=== PATIENT | male | born 1945 | race Caucasian/White ===

== ENCOUNTER 2022-08-07 10:55 | Day surgery (SDC) | payer OTHER ==
[2022-08-02 09:12] LABS: BASOPHILS % (AUTO) 0.4 % (0-1); EOSINOPHILS # (AUTO) 0.1 X10'3 (0-0.9); EOSINOPHILS % (AUTO) 2.1 % (0-6); HEMATOCRIT 42.1 % (42.0-52.0); HEMOGLOBIN 14.4 g/dl (14.0-17.9); LYMPHOCYTES % (AUTO) 30.5 % (21-51); MEAN CORPUSCULAR HEMOGLOBIN 34.8 PG (27.0-31.0); MEAN CORPUSCULAR HGB CONC 34.3 g/dL (33.0-36.5); MEAN CORPUSCULAR VOLUME 101.6 FL (78-98); MEAN PLATELET VOLUME 8.5 FL (7.4-10.4); MONOCYTES # (AUTO) 0.8 X10'3 (0-0.9); MONOCYTES % (AUTO) 12.1 % (2-12); NEUTROPHILS # (AUTO) 3.6 X10'3 (1.8-7.7); NEUTROPHILS % (AUTO) 54.9 % (42-75); PLATELET COUNT 171 X10'3 (140-440); RED BLOOD COUNT 4.14 X10'6 (4.70-6.10); RED CELL DISTRIBUTION WIDTH 13.1 % (11.5-14.5); WHITE BLOOD COUNT 6.5 X10'3 (4.5-11.0)
[2022-08-02 09:21] LABS: ALBUMIN 3.6 G/DL (3.4-5.0); ANION GAP 7 (8-16); BLOOD UREA NITROGEN 25 MG/DL (7-18); BUN/CREATININE RATIO 22.9 (5.4-32.0); CALCIUM 9.2 MG/DL (8.5-10.1); CHLORIDE 106 MMOL/L (99-107); CREATININE 1.09 MG/DL (0.60-1.10); GLUCOSE 91 MG/DL (70-104); POTASSIUM 3.9 MMOL/L (3.5-5.1); SODIUM 141 MMOL/L (135-145); TOTAL CARBON DIOXIDE 28.3 MMOL/L (24-32); eGFR 66 ML/MIN
[2022-08-02 09:27] LABS: APTT 31 SECONDS (22-32)
[2022-08-07] VITALS (16 sets, daily range): BP systolic 79–131; BP diastolic 46–75
[~2022-08-07] VITALS: Ht 188 cm; Wt 107.4 kg
[2022-08-07] MEDS ORDERED: normal saline 1000ml 1,000 ML IV SCH ×2 (11:25→11:30)
[2022-08-07] MEDS ORDERED: APIX5TAB3 PO (11:26)
[2022-08-07] MEDS ORDERED: SOTA80TA73 PO (11:26)
[2022-08-07] MEDS ORDERED: FLO0.4C PO (11:26)
[2022-08-07] MEDS ORDERED: GABA-534 PO (11:26)
[2022-08-07] MEDS ORDERED: TRIA1CAP88 PO (11:26)
[2022-08-07] MEDS ORDERED: IRBE150T24 PO (11:26)
[2022-08-07] MEDS ORDERED: LEVO125T PO (11:26)
[2022-08-07] MEDS ORDERED: SIMV-45 PO (11:26)
[2022-08-07] MEDS ORDERED: ACET-3414 (11:28)
[2022-08-07] MEDS ORDERED: MULT-1085 PO (11:28)
[2022-08-07] MEDS ORDERED: fentaNYL/PF 50MCG/1 ML 2ML syringe IV ONE (11:30)
[2022-08-07] MEDS ORDERED: MIDAZolam 1mg/ml 10ml vial IV ONE (11:30)
== END 2022-08-07 15:00 | disposition home or self-care (01) ==
LOC: SSTAY O 10:55
PROVIDERS: ATTEND Student in an Organized Health Care Education/Training Program
DX: I48.91 Unspecified atrial fibrillation (principal); I10 Essential (primary) hypertension; Z79.899 Other long term (current) drug therapy; Z98.890 Other specified postprocedural states
CPT/HCPCS: 36415; 80048; 85025; 85610; 85730; 92960; 93005; J2250; J3010; J7030; A4620